=== PATIENT | female | born 1960 | race Caucasian/White ===

== ENCOUNTER → 2017-10-09 | Outpatient (CLI) | payer BC ==
[~2017-10-09] MED LIST: ADVAIR 250/501 DISK IH; ANTIVERT25 MG PO; FLEXERIL10 MG PO; FLOMAX0.4 MG PO; IMITREX100 MG PO; NORCO 5/3251 TABLET PO; PERCOCET 5/31 TABLET PO; PROVENTIL,200 INHALA IH
== END | disposition home or self-care (01) ==
LOC: CDC 14:55
DX: Z01.810 Encounter for preprocedural cardiovascular examination (principal); K43.9 Ventral hernia without obstruction or gangrene; R94.31 Abnormal electrocardiogram [ECG] [EKG]
CPT/HCPCS: 93000

== ENCOUNTER 2017-11-02 05:31 | Day surgery (SDC) | payer BC ==
[~2017-11-02] VITALS: Ht 165.1 cm; Wt 106.5 kg
[~2017-11-02 05:31] MED LIST changes: +ALEVE220 MG PO; +BREO ELLIPTA 21 EACH IH; +DUONEB 2.5-0.5 M3 ML AEROSOL; +VENTOLIN HFA18 GM IH; +VOLTAREN75 MG PO
[2017-11-02 06:02] VITALS: BP 124/80
[2017-11-02] MEDS ORDERED: NORCO 5/3251 TABLET PO (10:32)
[2017-11-02 15:15] VITALS: BP 100/60
[2017-11-02 19:36] VITALS: BP 120/68
[2017-11-02 23:00] VITALS: BP 108/56
[2017-11-03 03:45] VITALS: BP 120/65
[2017-11-03 07:19] VITALS: BP 132/76
== END 2017-11-03 12:35 | disposition home or self-care (01) ==
LOC: SDC 05:31 → ENRESERV 13:38 → 2EAST 13:39 → 2SOUTH 13:39 → SDC 14:14 → ENRESERV 14:33 → 2EAST 15:06 → ENPENDDIS 11-03 → 2EAST 11-03 12:35
DX: K80.10 Calculus of gallbladder with chronic cholecystitis without obstruction (principal); K43.0 Incisional hernia with obstruction, without gangrene; E66.9 Obesity, unspecified; Z68.39 Body mass index [BMI] 39.0-39.9, adult; K66.0 Peritoneal adhesions (postprocedural) (postinfection); G89.29 Other chronic pain; M54.9 Dorsalgia, unspecified; J44.9 Chronic obstructive pulmonary disease, unspecified; F17.200 Nicotine dependence, unspecified, uncomplicated; Z20.1 Contact with and (suspected) exposure to tuberculosis; M19.90 Unspecified osteoarthritis, unspecified site; E78.6 Lipoprotein deficiency; M51.36 Other intervertebral disc degeneration, lumbar region; Z88.5 Allergy status to narcotic agent; Z88.8 Allergy status to other drugs, medicaments and biological substances
CPT/HCPCS: 88304; 94640; 94640 76; 94660; C1781; G0378; J0131; J0690; J1100; J1170; J1885; J2250; J2405; J2710; J2765; J2795; J3010; J3475; J7120